=== PATIENT | female | born 1990 | race Caucasian/White ===

== ENCOUNTER 2024-06-04 11:19 | Day surgery (SDC) | payer BC, SELFPAY ==
[2024-06-04] VITALS (8 sets, daily range): BP systolic 103–122; BP diastolic 72–80; PULSE 46–62; RESP 14–16; TEMP 36.5–36.8; O2SAT 100; BMI 23.1
--- NOTE | 2024-06-04 11:51 | PRE.ANES_ITS ---
ASA Classification* ASA Classification ASA Classification: 2 Assessment & Plan Anesthesia* Anesthesia Assessment Anesthesia Assessment: Discussed sedation and/or anesthesia options, risks, benefits, and alternatives with patient/parents/legal guardian/POA. Questions invited. The patient/parents/legal guardian/POA seems to understand and agrees to proceed with anesthesia plan. Reviewed the physical assessment, medical history, allergy history and patient home medications list prior to surgery/procedure/anesthetic and documented any changes. Performed airway and anesthesia risk assessments. Anesthesia Type Anesthesia Type: General Anesthesia Focused Assessment* Temperature: 98.3 F Pulse Rate: 54 Blood Pressure: 122/77 Respiratory Rate: 14 Pulse Ox: 100 Airway Assessment Mouth opens: >3 cm Mallampati Score: II Focused Labs Anesthesia Preop lab: CBC WBC 6.9 K/mm3 (4.4-11.0) 05/05/14 19:05/05/14 RBC 4.29 M/mm3 (4.2-5.4) 05/05/14 19:05/05/14 Hgb 10.7 g/dl (12.0-15.0) L 05/05/14 19: 5 Hct 35.4 % (37-47) L 05/05/14 19:30 05/05/14 Plt Count 307 K/mm3 (150-450) 05/05/14 19:30 05/05/14 CHEMISTRY Potassium 3.4 mmol/L (3.5-5.1) L 05/05/14 19:30 05/05/14 Sodium 139 mmol/L (136-145) 05/05/14 19:30 05/05/14 BUN 16 mg/dL (7-18) 05/05/14 19:05/05/14 Creatinine 1.1 mg/dL (0.6-1.0) H 05/05/14:05/05/14 Glucose 106 mg/dL (70-110) 05/05/14 19:05/05/14 COAG Urine Test Pending 06/04/24 11:30 06/04/24 Pre-Assessment Diagnosis/Proposed Procedure Planned Operative Procedure(s): (B) Laparoscopic, bilateral Salpingectomy Anesthesia History Anesthesia History - scientist electronics: Anesthesia History - scientist electronics Hx Hospitalization No 05/24/24 13:27 Any Problems With Anesthesia No 05/24/24 13:27 Cholinesterase deficiency No 05/24/24 13:27 You/Your Family Experience No 05/24/24 13:27 fever (hyperthermia) with Relationship Recent Exposure to Contagious No 06/04/24 11:43 Disease Does patient have nerve No 05/24/24 13:27 stimulator Patient instructed to have device shut off --Does patient have Pacemaker No 06/04/24 11:43 or ICD? When Was Last Pacemaker Check QUESTION #4 FULL TEXT: You/Your Family Experience fever (hyperthermia) with Anesthesia Last Oral Intake Last Oral intake: Last Oral Intake NPO since 07:30 06/04/24 11:43 Meds taken in AM with sips of No 06/04/24 11:43 water? Meds patient instructed to take am of surgery PONV PONV - scientist electronics: PONV - scientist electronics Female Yes 05/24/24 13:27 HX of Motion Sickness Yes 05/24/24 13:27 HX of N/V After Surgery No 05/24/24 13:27 Non-Smoker No 05/24/24 13:27 Duration of Surgery greater No 05/24/24 13:27 than 60 minutes Number of Risk Factors 2 05/24/24 13:27 PONV Score Moderate Risk 05/24/24 13:27 Height & Weight Height & Weight: Anesthesia: Height & Weight Height 5 ft 6 in 06/04/24 11:43 Weight: 65 kg 06/04/24 11:43 Body Mass Index (BMI) 23.1 06/04/24 11:43 Respiratory Assessment Respiratory Assessment - scientist electronics: Respiratory Tract Infection Hx - scientist electronics Hx Respiratory Tract Infection No 05/24/24 13:27 STOP Sleep Apnea STOP Sleep Apnea - scientist electronics: STOP Sleep Apnea - scientist electronics Hx Hypertension No 05/24/24 13:27 Hx Sleep Apnea No 05/24/24 13:27 CPAP BIPAP Do you snore loudly (louder No 05/24/24 13:27 than talking or can be heard Do you often feel tired/ No 05/24/24 13:27 fatigued/ sleepy during daytime? Has anyone observed you stop No 05/24/24 13:27 breathing during sleep? STOP Results Negative 05/24/24 13:27 QUESTION #5 FULL TEXT : Do you snore loudly (louder than talking or can be heard through closed doors)? 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 Specify any problems Hx of Preganancy in last 3 No 05/24/24 13:27 Months Nurse Filling Out Transfusion VCHRISTIN 05/24/24 13:27 & Questions: Date: 05/24/24 05/24/24 13:27 Time: 13:28 05/24/24 13:27 Patient unable to answer at this time (ie. confused, unrespo /Reproduction History /Reproductive History - scientist electronics: /Reproductive Hx- scientist electronics Hx Now No 05/24/24 13:27 Gestational Age (in weeks): EDC: Hx Hx Para Hx Section SAB No 05/24/24 13:27 Active Medications Active Medications: Current Medications Generic Name Dose Route Start Last Admin Trade Name Freq PRN Reason Stop Dose Admin Sodium Chloride 1,000 mls @ 15 mls/hr 06/04/24 11:30 IV 06/10/24 00:49 .Q48H [facility] Protocol PFSH Medical History Wears contact lenses Wears glasses Kidney stones Anemia Smoker Home Medications ?Medication ?Instructions ?Recorded ?Last Taken ?Type multivitamin (Daily Multi-Vitamin 1 tab PO DAILY 05/2406/03/24 History tablet) Allergy/AdvReac Type Severity Reaction Status Date / Time No Known Allergies Allergy Verified 06/04/24 11:49 Social History Smoking Status: Light Smoker (<10/day) Review of Systems (Anesthesia) ROS Narrative System reviewed and no additional complaints, except as documented.
[2024-06-04] MEDS: 0.9% Normal Saline (1000mL) 1,000 ML 15 ML IV (11:52)
[2024-06-04 11:53] LABS: Internal QC Validated? YES +Cl - CLEAR BKGD; Pregnancy, Urine Negative Negative
--- NOTE | 2024-06-04 12:00 | PCM.HP.BLA ---
History and Physical Date of Admission: 06/04/24 PROBLEM: request for sterilization DIAGNOSIS: request for sterilization PAST SURGICAL HISTORY: PAST SURGICAL HISTORY PAST SURGICAL HISTORY Procedure Laterality Date ? NONE ? TOOTH EXTRACTION PAST MEDICAL HISTORY: PAST MEDICAL HISTORY PAST MEDICAL HISTORY Diagnosis Date ? Eating disorder 08/02/2014 ? Iron deficiency anemia due to dietary causes 08/16/2014 SUBJECTIVE: . Currently has IUD for contraception. No issues with menses SOCIAL HISTORY: SOCIAL HISTORY Social History Tobacco Use ? Smoking status: Light Smoker Types: Cigarettes Passive exposure: Current ? Smokeless tobacco: Never Vaping Use ? Vaping status: Never Used Substance Use Topics ? Alcohol use: Yes Alcohol/week: 2.0 standard drinks of alcohol Types: 2 Cans of Beer (12oz) per week Comment: sometimes on the weekend ? Drug use: No ALLERGIESExpand by Default ALLERGIES No Known Allergies Current Outpatient Medications on File Prior to Visit Medication Sig ? MELATONIN ORAL Take by mouth. ? levonorgestrel (KYLEENA) 17.5 mcg/24 hrs (5 yrs) 19.5 mg IUD 1 Each by INTRAUTERINE route as directed. ? multivitamin tablet Take 1 tablet by mouth once daily. No current facility-administered medications on file prior to visit. OBJECTIVE: VITALS: BP 100/64 Pulse 68 Resp 14 Ht 167.6 cm (5' 6) Wt 64.8 kg (142 lb 12.8 oz) LMP 06/30/2019 BMI 23.05 kg/m? HEENT: Normocephalic, atraumatic, Mucus membranes moist without lesions. NECK: Soft and Supple. SKIN: No lesions. CHEST: No increased respiratory effort. HEART: Regular rate. BACK: Non tender. ABDOMEN: Non distended. LOWER EXTREMITIES: There was no pitting edema, no palpable cords and no skin changes. ASSESSMENT: pre op PLAN: 1) Discussed r/b/a laparoscopic bilateral salpingectomy and IUD removal. She understands sterilization is permanent and irreversible with risk of regret. Discussed all other options for contraception. The rationale for the proposed surgery was discussed in addition to risks, benefits, and alternatives. General pre- and post-operative care was reviewed. Questions were answered. After discussion, the patient indicated a desire to proceed with the planned surgery. Alice Rangel, DO Assessment & Plan Assessment/Plan (1) Request for sterilization:
--- NOTE | 2024-06-04 12:01 | PCM.PN.BLA ---
Progress Note Patient was seen in pre op. Assessment & Plan Assessment/Plan (1) Request for sterilization: PLAN: Patient seen in pre op. No changes noted to H&P. Patient desires to proceed with surgery as planned.
[2024-06-04 12:02] LABS: Hematocrit 44.5 % (37-47); Mean Corp Hgb Conc 33.7 g/dL (32-36); Mean Corpuscular Hgb 32.3 pg (27.0-32.0); Mean Corpuscular Volume 95.9 fL (81-99); Mean Platelet Vol. 9.9 fl (6.2-12.0); Platelet Count 257 K/mm3 (150-450); RBC Distribution Width CV 12.3 % (11.6-14.6); RBC Distribution Width SD 42.7 fl (35.1-43.9); Red Blood Count 4.64 M/mm3 (4.2-5.4); White Blood Count 5.9 K/mm3 (4.4-11.0)
[2024-06-04] MEDS: Bupivacaine Mpf 0.5% 30 ML VIAL (12:29)
--- NOTE | 2024-06-04 13:00 | FALS_PTH ---
PATIENT: ANDREW BALL LOC: [facility] – [place] U#:[id number] AGE/SX: 33/F ROOM: RE06/04/[address]: Dr. Alice Rangel DO : 1990 BED: DIS: 06/04/2024 SPEC #: [id number] RECD: 06/04/24 17:25 STATUS: YAYA DARCI #: [id number] GARY: 06/04/24 13:[address]: Alice Rangel DEPT: SURGICAL PATHOLOGY RECD BY: Pam Wagner ENTERED: 06/07/24 08:27 SP TYPE: FALL TUBES OTHR DR: Delia Primary Care Phys Tissues: Fallopian tube Procedures: Surgery Specimen Level II HEADER OPERATION: Laparoscopic bilateral salpingectomy PRE-OP DIAGNOSIS: Request for sterilization TISSUE SUBMITTED: Bilateral fallopian tubes MICROSCOPIC DIAGNOSIS Fallopian tube #1, excision: * No specific pathologic change (confirmed). Fallopian tube #2, excision: * Benign paratubal cyst (confirmed). MICROSCOPIC DESCRIPTION Slides are reviewed. GROSS DESCRIPTION Received in fixative is one container labeled with the patient's name and designated bilateral fallopian tubes. The specimen consists of two undesignated fallopian tubes with fimbriated ends. The first measures 6 x 1 x 0.8cm. It has a smooth shiny badillo-purple serosal surface without lesions. Sectioning reveals a lumen. The second fallopian tube measures 6 x 1.2 x 1cm and also has a smooth-shiny badillo-purple serosal surface. A 6mm clear fluid filled cyst is present at the fimbriated end. Sectioning reveals a lumen. RS2 mr 06/07/2024 Cassette summary: 1- first fallopian tube with fimbriated end 2- second fallopian tube with fimbriated end CPT: 69686 x2
--- NOTE | 2024-06-04 13:36 | DCINST_ITS ---
Discharge Instructions Diet Discharge Diet: No restrictions DC O2, CPAP, BIPAP needs Home O2 Discharge instructions: No Dressing / Incision Discharge Activity: May Drive (Once you are more than 24 hours out from surgery. Once you do not need pain medication, and you feel strong enough to slam on a brake or turn a steering wheel sharply) and May Shower (Once you are more than 24 hours out from surgery) May resume sexual activity in: 1 week (Nothing in the vagina and no soaking in water for 1 week) Weight Bearing Status: Weight bearing as tolerated Lifting Restrictions: nothing greater than 20-25 pounds for 1 week Dressing / Incision Call your doctor if your incision/area has: Continuous Slow Oozing, Sudden Increased Bleeding, Increased Pain/ Swelling, Increased Redness, Foul Smelling Discharge and Swelling at the incision site Call your doctor if you observe: Fever of 101 or Higher, Coldness, Increased Pain, Numbness or Tingling, Inability to urinate, Inability to have a bowel movement, Using more than 1 pad per hour, Shortness of breath, Dizziness, Swelling in the ankles, Chest pain, Increased palpitations (irregular heartbeat), Calf discomfort and Uncontrolled pain Change Dressing in: leave in place till F/U (The glue will peel up over time and you can cut the edges or peel the glue off. There are sutures under your skin that will dissolve in about 6 weeks) Cleanse incision/area with: Soap & Water Follow Up Care Please Follow Up With: Alice Rangel DO When: 1 week Test Results: Test results from this visit will be discussed in further detail at your follow- up appointment, if applicable. Discharge Plan Admission Primary Reason for Your Visit: surgery Attending Provider: Alice Rangel Primary Care Provider: Delia Emerson Primary Instructions Patient Instructions: Lap Fallopian Tube Ligation Dc Print Language: Norwegian Discharge Orders/Prescriptions Prescriptions: Continued multivitamin [Daily Multi-Vitamin] Tablet 1 tab PO DAILY Referrals / Follow Up: Care Delia Jacques Primary [Primary Care Provider] - Disposition Disposition (needs filled in before D/C Order can be placed): Home, Self Care
--- NOTE | 2024-06-04 13:40 | OP.PCM_ITS ---
Problems Associated Problem List Diagnoses (1) Request for sterilization: Operative Report (Standard) Operative Information Date of Procedure: 06/04/24 Pre-Operative Diagnosis: Request for sterilization, request for IUD removal Post-Operative Diagnosis: As above Surgery/Procedure Performed: IUD removal Laparoscopic bilateral salpingectomy control valve mechanic: Yes Flag Decorator: Adin MOBLEY Tasks completed by assistant professor of religion: Closing, Insert Trochanter and Retracting Type of Anesthesia: General RN Documented Start/Stop Times: Operation Date: 06/04/24 13:00 Case Time Into Pre-Op 06/04/24 11:26 Out of Pre-Op 06/04/24 12:47 Anesthesia Start 06/04/24 12:50 Into Room 06/04/24 12:50 Procedure Start 06/04/24 13:11 Procedure End 06/04/24 13:35 Procedure Start Time: 13:11 Procedure Stop Time: 13:35 Select all DRAINS/GRAFTS/IMPLANTS that apply: None Special Medications: None Estimated Blood Loss: < 20 mL Fluids Replaced: See anesthesia record Specimen collected: Yes Description of specimen(s) removed: Bilateral fallopian tubes Description of surgery: The patient was taken to the operating room where general anesthesia was induced and found to be adequate. She was prepped and draped in the dorsal lithotomy position using yellowfin stirrups. From below a weighted speculum was placed in the vagina to expose the cervix. The anterior lip of the cervix was grasped with a single-tooth tenaculum. IUD strings were not visualized. A Christine was inserted into the cervical canal, and the IUD strings were grasped and brought to outside of the cervix. The IUD strings were then grasped and with gentle traction the IUD was removed easily and intact. The uterus sounded to 8 cm. A uterine manipulator was placed. The weighted speculum and single tenaculum were removed. Gloves were changed and attention was turned to the abdominal portion of the procedure. Local was infiltrated at all port sites. An infraumbilical incision was made to accommodate a 5 mm port. The 5 mm port was placed under direct visualization using the laparoscope. Once confirmed intraperitoneal CO2 insufflation was initiated. No injury was noted upon entry. The patient was placed in Trendelenburg position. A right lateral 5 mm port was placed. A left lateral 5 mm port was placed. The uterus was upheld from below noting a normal-appearing uterus and bilateral adnexa. The right fallopian tube was followed out to the fimbriated end and elevated the pelvis. The LigaSure device was used to serially clamp, cauterize, and transect along the mesosalpinx hugging adjacent to the fallopian tube. Once at the level of the cornua the fallopian tube was transected and removed. The left fallopiab tube was then followed out to the fimbriated end and elevated out of the pelvis. The LigaSure device was used to serially clamp, cauterize, and transect the mesosalpinx hugging adjacent to the fallopian tube. Once at the level of the cornua the fallopian tube was transected and removed. Bilateral fallopian tubes were sent to pathology for review. Hemostasis was confirmed. The abdomen was exsufflated and ports were removed. The skin was closed with 4-0 Monocryl and glue. The uterine manipulator was removed from below. A vaginal sweep was performed. Instrument, sharp, sponge counts were correct and patient was taken to recovery in stable condition. Surgical Findings: Normal appearing pelvis. Normal appearing uterus and bilateral adnexa Complications Complications: No
--- NOTE | 2024-06-04 14:12 | PCM.POST.ANE ---
Anesthesia: Postop Eval I Current Vital Signs Temperature: 97.7 F Pulse Rate: 62 Blood Pressure: 116/80 Respiratory Rate: 16 Pulse Ox: 100 Oxygen Delivery Method: Room Air Assessment Airway patent: Yes Spontaneous unlabored respirations: Yes Mental status: Awake and Calm nausea: No Vomiting: No Anesthesia Complication: No Fluid Hydration Crystalloid volume administer (ml): 700 Total IV fluid infused: 700 Progress Note Anesthesia document: Postop Eval 1 completed: Yes
[2024-06-04] MEDS: Acetaminophen 325 MG Tablet 650 MG PO (14:28)
--- NOTE | 2024-06-04 14:53 | POSTOPAN2_ITS ---
Anesthesia Postop Eval I Sum Postop Eval Completion status Anesthesia document: Postop Eval 1 completed: Yes Anesthesia Postop Eval I Summary Anesthesia Postop Eval I Summary: Anesthesia Postop Eval I: Assessment Summary Airway patent Yes 06/04/24 14:13 BONDING MACHINE OPERATOR.[email or web address] Spontaneous unlabored Yes 06/04/24 14:13 BONDING MACHINE OPERATOR.YASEMIN respirations Mental status Awake,Calm 06/04/24 14:13 BONDING MACHINE OPERATOR.YASEMIN nausea No 06/04/24 14:13 BONDING MACHINE OPERATOR.YASEMIN Vomiting No 06/04/24 14:13 BONDING MACHINE OPERATORISSA Anesthesia Postop Eval I: Fluid Summary Crystalloid volume administer 700 06/04/24 14:13 BONDING MACHINE OPERATOR.YASEMIN (ml) Colloids volume administered ( ml) Blood Product volume administered (ml) Total IV fluid infused 700 06/04/24 14:13 BONDING MACHINE OPERATOR.YASEMIN Anesthesia Postop Eval I: Summary Notes Anesthesia Complication No 06/04/24 14:13 BONDING MACHINE OPERATORISSA Anesthesia Complication Comment: Post-operative progress note Anesthesia: Postop Eval II Evaluation Mental status: Awake Pain Level: 1 nausea: Yes Vomiting: No
--- NOTE | 2024-06-04 14:53 | PCM.POSTANE2 ---
Anesthesia Postop Eval I Sum Postop Eval Completion status Anesthesia document: Postop Eval 1 completed: Yes Anesthesia Postop Eval I Summary Anesthesia Postop Eval I Summary: Anesthesia Postop Eval I: Assessment Summary Airway patent Yes 06/04/24 14:13 ROLL FORMING MACHINE OPERATOR.BECKYOBMalathi Spontaneous unlabored Yes 06/04/24 14:13 ROLL FORMING MACHINE OPERATOR.YASEMIN respirations Mental status Awake,Calm 06/04/24 14:13 ROLL FORMING MACHINE OPERATOR.YASEMIN nausea No 06/04/24 14:13 ROLL FORMING MACHINE OPERATOR.YASEMIN Vomiting No 06/04/24 14:13 ROLL FORMING MACHINE OPERATORISSA Anesthesia Postop Eval I: Fluid Summary Crystalloid volume administer 700 06/04/24 14:13 ROLL FORMING MACHINE OPERATOR.YASEMIN (ml) Colloids volume administered ( ml) Blood Product volume administered (ml) Total IV fluid infused 700 06/04/24 14:13 ROLL FORMING MACHINE OPERATOR.YASEMIN Anesthesia Postop Eval I: Summary Notes Anesthesia Complication No 06/04/24 14:13 ROLL FORMING MACHINE OPERATORISSA Anesthesia Complication Comment: Post-operative progress note Anesthesia: Postop Eval II Evaluation Mental status: Awake Pain Level: 1 nausea: Yes Vomiting: No
== END 2024-06-04 14:41 | disposition home or self-care (01) ==
LOC: SDC 11:23 → AC 11:25
PROVIDERS: Anesthesiology; Referring Provider Obstetrics & Gynecology; Visit Provider Obstetrics & Gynecology
PROC: (CPT 58661; principal; 2024-06-04 12:45)
DX: Z30.2 Encounter for sterilization (principal); N83.8 Other noninflammatory disorders of ovary, fallopian tube and broad ligament; Z30.432 Encounter for removal of intrauterine contraceptive device; F17.210 Nicotine dependence, cigarettes, uncomplicated
CPT/HCPCS: 58661; 58301; 00840; 81025; 85027; 86850; 86900; 86901; 88302; J2405